=== PATIENT | male | born 1955 | race Caucasian/White ===

== ENCOUNTER 2019-10-24 07:17 | Emergency (ER) | payer BC ==
--- OUTSIDE RECORDS SUMMARY | 2019-10-24 07:25 | XMS REPORT | Continuity of Care Document ---
:1955 External Reference #:[id number] Author Name Kevon Robin DO Address [address] [place] [address] Problems Active Problems Provider Date Benign essential hypertension Ronnell Herrera DO Onset: 10/13/2005 Mixed hyperlipidemia Ronnell Herrera DO Onset: 10/13/2005 Problem Onset: Pure hypercholesterolemia Onset: 12/13/2015 Gastroesophageal reflux disease Ronnell Herrera DO Onset: 12/16/2015 Social History Type Date Description Comments Sex Unknown ETOH Use Occasionally consumes alcohol Tobacco Use Start: Unknown Patient is a current smoker, smokes every day Recreational Drug Use Denies Drug Use Allergies, Adverse Reactions, Alerts Description No Known Drug Allergies Medications Active Medications SIG Qnty Indications Ordering Provider Date Atorvastatin Calcium take 1 tablet by 90tabs E78.2 Kevon Robin, 2015 40mg mouth once daily DO Tablets Losartan Potassium 1 by mouth every 90tabs I10 Kevon Robin, 11/04/2015 50mg day DO Tablets Omeprazole 1 by mouth every 90caps K21.9 Jose Elias Graham MD 04/05/[address] Medications Administered in Office Medication SIG Qnty Indications Ordering Provider Date Depo Medrol 80 MG Kevon Robin DO 01/27/2019 Injection Immunizations CPT Code Status Date Vaccine Reaction Lot # [id number] Refused 03/30/2019 Tdap (Adacel) Ages 7 And Above Only Q2039 Refused 01/27/2019 Flu Vaccine NOS Pt says he does not get flu shots. DWAIN RAM 01/27/19 Q2035 Refused 09/30/2018 Afluria Imunization Vital Signs Date Vital Result Comment 10/02/2019 9:14am Weight 222.00 lb Heart Rate 80 /min BP Systolic 138 mmHg BP Diastolic 82 mmHg Respiratory Rate 18 /min Height 71.25 inches 5'11.25" BMI (Body Mass Index) 30.7 kg/m2 03/30/2019 7:57am Weight 224.00 lb Heart Rate 70 /min BP Systolic 130 mmHg BP Diastolic 84 mmHg BP Systolic Recheck 148 mmHg BP Diastolic Recheck 82 mmHg Respiratory Rate 17 /min Height 71.25 inches 5'11.25" 03/29/18 BMI (Body Mass Index) 31.0 kg/m2 Results Test Acquired Date Facility Test Result H/L Range Note Laboratory test 10/02/2019 [facility] U[facility] Culture <pending> finding Laboratory test 10/02/2019 [facility] Cytology Fluid <pending> finding Specimen -RL CBC with Auto 09/27/2019 [facility] WBC 5.0 K/uL 4.1-11.0 Diff-fcmg RBC 4.59 M/uL Low 4.60-6.10 Hemoglobin 14.8 gm/dL 13.5-18.0 Hematocrit 42.4 % 41.0-53.0 MCV 92.3 fL 80.0-97.0 MCH 32.3 pg High 27.0-32.0 MCHC 35.0 g/dL 32.0-36.0 RDW 13.5 % 11.5-14.5 PLT Count 205 K/ul 140-400 MPV 8.6 FL 7.1-10.7 Neutrophil 44.7 % 35.0-75.0 Lymphocyte 37.1 % 16.0-52.0 Monocyte 13.7 % High 2.0-10.0 Eosinophil 3.4 % 0.0-5.0 Basophil 1.1 % 0.0-4.0 Abs Neutrophils 2.2 K/uL 2.1-8.0 Abs Lymphocytes 1.8 K/uL 0.8-5.5 Abs Monocytes 0.7 K/uL 0.1-1.0 Abs Eosinophils 0.2 K/uL 0.0-0.5 Abs Basophils 0.1 K/uL 0.0-0.3 Basic (BMP) 09/27/2019 [facility] Sodium 141 mmol/L 135-146 1 Potassium 4.4 mmol/L 3.5-5.2 Chloride# 104 mmol/L 97-110 2 Carbon Dioxide 29 mmol/L 24-34 Glucose 85 mg/dL 70-105 BUN 14 mg/dL 6-26 Creatinine 0.7 mg/dL 0.5-1.4 Calcium 9.3 mg/dL 8.5-10.5 3 Female Egfr 93 >60 4 Male Egfr 102 >60 5 Anion Gap 8 mmol/L 5-15 6 Lipid Treatment 09/27/2019 [facility] Cholesterol 156 mg/dL 50-199 Triglycerides 150 mg/dL 30-200 HDL 43 mg/dL 29-71 7 Chol/ HDL Ratio 3.7 ratio Low 4.0-6.7 VLDL 30 mg/dL High 2-29 LDL (Calc) 83 mg/dL 20-99 8 Alt 18 U/L 3-42 Ast 14 U/L 8-42 Laboratory test 09/27/2019 [facility] Total Testosterone 352 ng/dL 285-650 finding Adult Male 1 Updated reference range on new analyzer 2 Updated reference range on new analyzer 3 Updated reference range 03-29-2019 4 Concerning GFR Guidelines for Americans: Normal function or mild renal disease, if clinically at risk: >/= 60 mL/min Moderately decreased: 30-59 Severely decreased: 15-29 Renal failure: <15 There is reduced accuracy above 60ml/min/1.73 m squared, but the numeric value may be clinically useful in the near 60 range 5 Concerning GFR Guidelines: Normal function or mild renal disease, if clinically at risk: >/= 60 mL/min Moderately decreased: 30-59 Severely decreased: 15-29 Renal failure: <15 There is reduced accuracy above 60ml/min/1.73 m squared, but the numeric value may be clinically useful in the near 60 range Glomerular Filtration Rate (GFR) is estimated based on the CKD-EPI equation, which assumes a steady state for creatinine as recommended by the National Kidney Disease Education Program in conjunction with the National Institutes of Health and the National Kidney Foundation. Clinical conditions in which it may be necessary to measure GFR by using clearance methods include extremes of age and body size, severe malnutrition or obesity, diseases of skeletal muscle, paraplegia or quadriplegia, vegetarian diet, rapidly changing kidney function, and calculation of the dose of potentially toxic drugs that are excreted by the kidneys. 6 Updated Reference Range 7 Per NCEP ATP III Guidelines: Results lower than 40 mg/dL are suggestive of increased risk for coronary artery disease. Results > or = to 60 mg/dL are considered a negative risk factor. 8 Per NCEP ATP III Guidelines: Normal Population <130 Patients with medical conditions: CHD/DM Optimal: <100 Borderline high: 130-159 High: 160-189 Very high: >189 Procedures Date Code Description Status 12/21/2017 [id number] Colonoscopy Completed 10/06/2005 74732512 Colonoscopy Completed Medical Devices Description No Information Available Encounters Description No Information Available Assessments Date Code Description Provider 10/02/2019 Z00.00 Encounter for general adult medical Kevon Robin, examination without abnormal findings 10/02/2019 E78.2 Mixed hyperlipidemia Kevon Robin, 10/02/2019 R25.1 Tremor, unspecified Kevon Robin DO 10/02/2019 M25.552 Pain in LEFT hip Kevon Robin, 10/02/2019 R68.82 Decreased libido Kevon Robin DO 10/02/2019 E66.9 Obesity, unspecified Kevon Robin DO 10/02/2019 I10 Essential (primary) hypertension Kevon Robin, 10/02/2019 R31.9 Hematuria, unspecified Kevon Robin, 10/02/2019 M54.5 Low back pain Kevon Robin DO 10/02/2019 Z68.30 Body mass index (BMI) 30.0-30.9, adult Kevon Robin DO 09/27/2019 I10 Essential (primary) hypertension Kevon Robin DO 09/27/2019 I10 Essential (primary) hypertension Schedule, Laboratory 09/27/2019 R68.82 Decreased libido Kevon Robin DO 09/27/2019 R68.82 Decreased libido Schedule, Laboratory 09/27/2019 I10 Essential (primary) hypertension [facility] 09/27/2019 R68.82 Decreased libido [facility] Plan of Treatment Future Appointment(s):03/25/2020 7:30 am - Schedule, Laboratory at [facility]2019 8:45 am - Kevon Robin, DO at [facility]03/30/2019 - Kevon Robin DOE78.2 Mixed hyperlipidemiaFollow up:Schedule x-ray today or tomorrow. Blood work in 6 months and would follow up with me a couple of days later.R25.1 Tremor, avhgywxypiyC48.552 Pain in LEFT hipR68.82 Decreased llfkvzQ05.9 Obesity, unspecifiedComments:The patient had gained around 3lbs of body weight since the previous visit and he currently weighs around 224lbs. A detailed discussion was had with the patient regarding his body weight and BMI. He was made aware about the health hazards of obesity including diabetes, hypertension, cardiac diseases, and other various risk factors. He was advised to maintain a healthy and low-calorie diet and a regular exercise regimen which will help him lose weight. Greater than 10 minutes spent on counseling.Z68.31 Body mass index (BMI ) 31.0-31.9, adult Functional Status Description No Information Available Mental Status Description No Information Available Referrals Refer to Reason for Referral Status Appt Date Jay Hodgson MD hip pain SCHEDULED PATIENT AND SPOKE WITH , Closed MICHELE, TO GIVE APPT DATE AND TIME. ALERTED HER THAT SHE NEEDS XRAYS ON DISC. I SENT A NOTE BACK TO [facility] TO MAKE XRAY CM 04/03 [facility] [address] [place] [phone]
[2019-10-24 07:35] VITALS: BP 140/111
--- NOTE | 2019-10-24 09:12 | UC ---
Back Pain HPI - HPI Summary HPI Summary: left mid to lower back pain x 4 weeks pain has been severe at time 10 out of 10 with spontaneous improvement. no radiation of pain, nothing makes the pain worse, this morning pain improved by him drinking warm coffee no fever, no chills, no n/v , no urinary sx. - History of Current Complaint Chief Complaint: UCBackPain Stated Complaint: LOWER BACK Time Seen by Provider: 10/24/19 07:44 Hx Obtained From: Patient Onset/Duration: Gradual Onset, Lasting Weeks - 4, Still Present Timing: Intermittent, Lasting Hours Severity Initially: Severe Severity Currently: Moderate Pain Intensity: 5 Pain Scale Used: 0-10 Numeric Back Pain: Is Discrete @ - left lower back/ left flank area Character: Aching Aggravating Factor(s): Nothing Alleviating Factor(s): Other - drinking warm drinks Associated Signs And Symptoms: Positive: Flank Pain - left. Negative: Swelling , Redness, Bruising, Fever, Weakness, Numbness, Tingling, Abdominal Pain, Bladder Incontinence, Bowel Incontinence, Weight Loss, Pain with Weight Bearing - Allergies/Home Medications Allergies/Adverse Reactions: Allergies Allergy/AdvReac Type Severity Reaction Status Date / Time No Known Allergies Allergy Verified 10/24/19 07:35 Home Medications: Home Medications Atorvastatin* [Lipitor*] 10 mg PO DAILY 10/24/19 [History Confirmed 10/24/19] Blood Pressure Med 10/24/19 [History] Omeprazole 20 mg PO DAILY 10/24/19 [History Confirmed 10/24/19] PMH/Surg Hx/FS Hx/Imm Hx Cardiovascular History: Hypertension - Surgical History Surgical History: Yes Surgery Procedure, Year, and Place: RT SHOULDER SURGERY 2010 - Family History Known Family History: Negative: Diabetes - Social History Alcohol Use: Weekly Substance Use Type: None Smoking Status (MU): Current Every Day Smoker Amount Used/How Often: 1 ppd Length of Time of Smoking/Using Tobacco: 30 yr Review of Systems All Other Systems Reviewed And Are Negative: Yes Constitutional: Positive: Negative Skin: Positive: Negative Eyes: Positive: Negative ENT: Positive: Negative Respiratory: Positive: Negative Is Patient Immunocompromised?: No Physical Exam Triage Information Reviewed: Yes Appearance: Well-Appearing, No Pain Distress, Well-Nourished Vital Signs: Initial Vital Signs Temp 98.0 F 10/24/19 07:26 Pulse 83 10/24/19 07:26 Resp 18 10/24/19 07:26 BP 140/111 10/24/19 07:26 Pulse Ox 97 10/24/19 07:26 Vital Signs Reviewed: Yes Eye Exam: Normal Eyes: Positive: Conjunctiva Clear ENT: Positive: Normal ENT inspection, Hearing grossly normal, Pharynx normal Neck: Positive: Supple, Nontender, No Lymphadenopathy Respiratory: Positive: Chest non-tender, Lungs clear, Normal breath sounds Cardiovascular: Positive: RRR, No Murmur, Pulses Normal Abdomen Description: Positive: Nontender, No Organomegaly, Soft. Negative: CVA Tenderness (R), CVA Tenderness (L), Distended, Guarding Bowel Sounds: Positive: Present Musculoskeletal Exam: Normal Musculoskeletal: Positive: Other: - lower back : no swelling, no erythema, no tenderness, good ROM Diagnostics - Radiology No standard instances Radiology Interpretation Completed By: Radiologist Summary of Radiographic Findings: ct abd/ pelvic w/o contrast: IMPRESSION: 1. No renal calculi or signs of hydronephrosis bilaterally. 2. There is mild infiltration of the left perinephric fat and trace free fluid along the inferior margin of the left kidney. Please correlate to signs or symptoms of pyelonephritis. 3. Distal colonic diverticulosis. 4. Bilateral adrenal nodules, certainly an adenoma the right and 98% likelihood of adenoma on the left. Back Pain Course/Dx - Course Course Of Treatment: HTN: please cont. with current bp meds monitor your bp , follow up with your pcp in one week - Differential Dx/Diagnosis Provider Diagnosis: Lower back pain, Hypertension Discharge ED - Sign-Out/Discharge Documenting (check all that apply): Patient Departure All imaging exams completed and their final reports reviewed: Yes - Discharge Plan Condition: Stable Disposition: HOME Prescriptions: predniSONE [Prednisone 20 MG TAB] 20 mg PO BID #10 tablet Patient Education Materials: Acute Low Back Pain (ED) Referrals: Kevon Robin DO [Primary Care Provider] - 7 Days Additional Instructions: ct abd w/o contrast : IMPRESSION: 1. No renal calculi or signs of hydronephrosis bilaterally. 2. There is mild infiltration of the left perinephric fat and trace free fluid along the inferior margin of the left kidney. Please correlate to signs or symptoms of pyelonephritis. 3. Distal colonic diverticulosis. 4. Bilateral adrenal nodules, certainly an adenoma the right and 98% likelihood of adenoma on the left. symptoms might be due to pinch nerve will have you try prednisone x 5 days please follow up with your pcp in 7 to 10 days if not better - Billing Disposition and Condition Condition: STABLE Disposition: Home
== END 2019-10-24 08:51 | disposition home or self-care (01) ==
LOC: UCCORT 07:17
DX: M54.5 Low back pain (principal); I10 Essential (primary) hypertension; K57.30 Diverticulosis of large intestine without perforation or abscess without bleeding; N28.89 Other specified disorders of kidney and ureter; E27.8 Other specified disorders of adrenal gland; F17.210 Nicotine dependence, cigarettes, uncomplicated
CPT/HCPCS: 74176; 81003; 99212; G0463

== ENCOUNTER 2019-12-15 07:09 | Emergency (ER) | payer BC ==
--- NOTE | 2019-12-15 07:48 | UC ---
Lower Extremity/Ankle HPI - HPI Summary HPI Summary: 64 y/o male with trauma to 4th left toe and concern for fracture. worse with movement. improved with rest . hit toe on chair last night. pain worsened this am when getting out of bed - History of Current Complaint Chief Complaint: UCLowerExtremity Stated Complaint: 4TH LEFT SIDE TOE INJURY Time Seen by Provider: 12/15/19 07:20 Hx Obtained From: Patient Onset/Duration: Sudden Onset Pain Intensity: 6 - Allergies/Home Medications Allergies/Adverse Reactions: Allergies Allergy/AdvReac Type Severity Reaction Status Date / Time No Known Allergies Allergy Verified 12/15/19 07:23 Home Medications: Home Medications predniSONE [Prednisone 20 MG TAB] 20 mg PO DAILY 12/15/19 [History Confirmed ] PMH/Surg Hx/FS Hx/Imm Hx Previously Healthy: Yes Endocrine History: Dyslipidemia Cardiovascular History: Hypertension - Surgical History Surgical History: Yes Surgery Procedure, Year, and Place: bilateral SHOULDER SURGERY 2010 - Family History Known Family History: Negative: Diabetes - Social History Alcohol Use: None Substance Use Type: None Smoking Status (MU): Current Every Day Smoker Type: Cigarettes Amount Used/How Often: 1 ppd Length of Time of Smoking/Using Tobacco: 30 yr Review of Systems All Other Systems Reviewed And Are Negative: Yes Musculoskeletal: Positive: Arthralgia, Decreased ROM Is Patient Immunocompromised?: No Physical Exam Triage Information Reviewed: Yes Appearance: Well-Appearing, Well-Nourished Vital Signs: Initial Vital Signs Temp 98.1 F 12/15/19 07:18 Pulse 71 12/15/19 07:18 Resp 20 12/15/19 07:18 BP 131/97 12/15/19 07:18 Pulse Ox 98 12/15/19 07:18 Vital Signs Reviewed: Yes Eyes: Positive: Conjunctiva Clear ENT: Positive: Hearing grossly normal Respiratory: Positive: Normal breath sounds Musculoskeletal: Positive: No Edema, ROM Limited @ - left 4th toe, Other: - cap refill < 3 sec. peripheral pulse brisk. tenderness of 4th toe diffusely Psychological: Positive: Normal Response To Family Skin Exam: Normal Lower Extremity Course/Dx - Course Course Of Treatment: (+) fracture at this time. non weight bearing. refer to ortho. he states not in pain at this time and will take motrin prn at home. - Differential Dx/Diagnosis Differential Diagnosis/HQI/PQRI: Fracture (Closed), Sprain, Strain Provider Diagnosis: Fracture of fourth toe, left, closed Discharge ED - Sign-Out/Discharge Documenting (check all that apply): Patient Departure All imaging exams completed and their final reports reviewed: Yes - Discharge Plan Condition: Good Disposition: HOME Patient Education Materials: Toe Fracture (ED) Referrals: Khanh Toure MD [Medical Doctor] - 3 Days (Orthopedic referral ) Kevon Robin DO [Primary Care Provider] - 4 Days - Billing Disposition and Condition Condition: GOOD Disposition: Home
[2019-12-15 08:36] VITALS: BP 131/97
== END 2019-12-15 08:09 | disposition home or self-care (01) ==
LOC: UCCORT 07:09
DX: S92.502A Displaced unspecified fracture of left lesser toe(s), initial encounter for closed fracture (principal); I10 Essential (primary) hypertension; F17.210 Nicotine dependence, cigarettes, uncomplicated; W22.03XA Walked into furniture, initial encounter; Y92.9 Unspecified place or not applicable
CPT/HCPCS: 99212; G0463